=== PATIENT | female | born 1955 | race Hispanic/Latino ===

== ENCOUNTER 2020-04-26 19:54 | Emergency (ER) | payer MEDICARE ==
[2020-04-26 20:15] VITALS: BP 143/81
--- NOTE | 2020-04-26 21:56 | XRay Report ---
RIGHT KNEE 2 VIEW(S) INDICATION / CLINICAL INFORMATION: Fall/pain COMPARISON: None available. FINDINGS: BONES / JOINT(S): No acute fracture or dislocation. Small suprapatellar effusion. Advanced tricompart mental degenerative change worst in the medial tibiofemoral and patellofemoral compartments with mode rate joint space narrowing medially. SOFT TISSUES: No significant abnormality. ADDITIONAL FINDINGS: None. Signer Name: Christian Reynoso MD Signed: 04/26/2020 9:51 PM Workstation Name: [id number]
--- NOTE | 2020-04-26 21:58 | XRay Report ---
RIGHT SHOULDER 3 VIEW(S) INDICATION / CLINICAL INFORMATION: Fall/pain COMPARISON: None available. FINDINGS: BONES / JOINT(S): Acute minimally displaced proximal humerus fracture which appears to extend through the greater tuberosity. Anatomical joint alignment. Moderate-severe degenerative osteoarthrosis. SOFT TISSUES: Mild shoulder edema. ADDITIONAL FINDINGS: None. Signer Name: Christian Reynoso MD Signed: 04/26/2020 9:53 PM Workstation Name: [id number]
[2020-04-26] MEDS ORDERED: oxyCODONE /ACETAMINOPHEN 5-325MG TAB PO ONE (22:32)
--- NOTE | 2020-04-26 23:08 | Emergency Department Report ---
ED Upper Extremity Inj HPI - General Chief Complaint: Fall Stated Complaint: HARD TO BREATHE FELL ON RT SHOULDER AND L Time Seen by Provider: 04/26/20 22:42 Source: patient Mode of arrival: Ambulatory Limitations: No Limitations - History of Present Illness Initial Comments: 65-year-old female employee of [employer] reports hurting herself couple months ago has been having some residual pain and aches since that time that has not been helped by climbing up the steps several stairs at her home states while she was coming downstairs she lost her balance falling on her right side sliding down for steps resulting in significant pain to her shoulder and some discomfort to her knee. Pain pain is dull and throbbing worse with range of motion MD Complaint: Injury to:: right, shoulder -: Sudden, This afternoon Other Extremity Injury: Shoulder: Right Handedness: right Place: home Improves With: none Worsens With: none Context: fall, injury Associated Symptoms: denies other symptoms Treatments Prior to Arrival: cold therapy - Related Data Previous Rx's Medication Instructions Recorded Last Taken Type HYDROcodone/APAP 10-325 [[place] 1 each PO Q8HR PRN #10 tablet 04/26/20 Unknown Rx 10/325] Allergies Allergy/AdvReac Type Severity Reaction Status Date / Time morphine Allergy Unknown Verified 04/26/20 20:07 ED Review of Systems ROS: Stated complaint: HARD TO BREATHE FELL ON RT SHOULDER AND L Other details as noted in HPI Comment: All other systems reviewed and negative ED Past Medical Hx - Past Medical History Previous Medical History?: Yes Hx Hypertension: Yes Hx Diabetes: Yes Additional medical history: HLD - Surgical History Past Surgical History?: No - Social History Smoking Status: Never Smoker - Medications Home Medications: Home Medications Medication Instructions Recorded Confirmed Last Taken Type HYDROcodone/APAP 10-325 [[place] 1 each PO Q8HR PRN #10 tablet 04/26/20 Unknown Rx 10/325] ED Physical Exam - General Limitations: No Limitations General appearance: alert, in no apparent distress - Head Head exam: Present: atraumatic, normocephalic - Eye Eye exam: Present: normal appearance, PERRL, EOMI - ENT ENT exam: Present: normal exam, normal orophraynx, mucous membranes moist - Neck Neck exam: Present: normal inspection, full ROM - Respiratory Respiratory exam: Present: normal lung sounds bilaterally. Absent: respiratory distress, wheezes, rales, rhonchi - Cardiovascular Cardiovascular Exam: Present: regular rate, normal rhythm, tachycardia. Absent: systolic murmur, diastolic murmur, rubs, gallop - GI/Abdominal GI/Abdominal exam: Present: soft, normal bowel sounds - Extremities Exam Extremities exam: Present: normal inspection - Back Exam Back exam: Present: normal inspection - Neurological Exam Neurological exam: Present: alert, oriented X3 - Psychiatric Psychiatric exam: Present: normal affect, normal mood - Skin Skin exam: Present: warm, dry, intact, normal color. Absent: rash ED Course Vital Signs 04/26/20 20:10 Temperature 97.6 F Pulse Rate 121 H Respiratory 18 Rate Blood Pressure 143/81 O2 Sat by Pulse 99 Oximetry - Orthopedic Splinting/Casting Injury #1 Side: right Upper Extremity Injury Location: upper arm Upper Extremity Immobilizer: sling/shoulder immobilize ED Medical Decision Making - Radiology Data Radiology results: report reviewed [facility] [address] [place] [address] XRay Report Signed Patient: ETTA SANCHEZ MR#: [id number] : 1955 Acct:[id number] Age/Sex: 65 / F ADM Date: 04/26/20 Loc: ED Attending Dr: Ordering Physician: ED MD BRENNA Date of Service: 04/26/20 Procedure(s): XR shoulder 2+V RT Accession Number(s): [id number] cc: ED MD BRENNA Fluoro Time In Minutes: RIGHT SHOULDER 3 VIEW(S) INDICATION / CLINICAL INFORMATION: Fall/pain COMPARISON: None available. FINDINGS: BONES / JOINT(S): Acute minimally displaced proximal humerus fracture which appears to extend through the greater tuberosity. Anatomical joint alignment. Moderate-severe degenerative osteoarthrosis. SOFT TISSUES: Mild shoulder edema. ADDITIONAL FINDINGS: None. Signer Name: Norma Reynoso MD Signed: 04/26/2020 9:53 PM Workstation Name: [id number] Transcribed By: RH Dictated By: NORMA REYNOSO III Electronically Authenticated By: NORMA REYNOSO III Signed Date/Time: 04/26/202152 DD/ 50 TD/TT: - Medical Decision Making 65-year-old female with a trip and fall down for 5 steps landing on her right side resulting in pain and discomfort found to have a fracture to the proximal humerus with minimal displacement she was placed in a sling and provided with analgesic pain control and also advised to follow-up with orthopedic for definitive management which she understands the need for follow- up and the risk if not doing so. Blood pressure remained stable and heart rate significantly improved from 121 down to the 90s prior to discharge Critical care attestation.: If time is entered above; I have spent that time in minutes in the direct care of this critically ill patient, excluding procedure time. ED Disposition Clinical Impression: Proximal humeral fracture Disposition: - TO HOME OR SELFCARE Is pt being admited?: No Does the pt Need Aspirin: No Condition: Stable Instructions: Cast or Splint Care, Adult, [place], Humerus Fracture Treated With Immobilization Prescriptions: HYDROcodone/APAP 10-325 [[place] 10/325] 1 each PO Q8HR PRN #10 tablet PRN Reason: Pain Referrals: [facility] MD NIKHIL [Primary Care Provider] - 3-5 Days NORMA LOPEZ MD [Staff Physician] - 2-3 Days [facility] [Provider Group] - 2-3 Days
== END 2020-04-26 23:48 | disposition home or self-care (01) ==
LOC: ED 19:54
DX: S42.201A Unspecified fracture of upper end of right humerus, initial encounter for closed fracture (principal); I10 Essential (primary) hypertension; E11.9 Type 2 diabetes mellitus without complications; Z79.899 Other long term (current) drug therapy; Z88.6 Allergy status to analgesic agent; W10.9XXA Fall (on) (from) unspecified stairs and steps, initial encounter; Y93.89 Activity, other specified; Y92.89 Other specified places as the place of occurrence of the external cause; Y99.8 Other external cause status
CPT/HCPCS: 99283